=== PATIENT | female | born 2000 | race American Indian/Alaskan Native ===

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

== ENCOUNTER 2020-11-13 19:29 | Emergency (ER) | payer MEDICAID ==
[2020-11-13 19:58] VITALS: BP 113/58
--- NOTE | 2020-11-13 20:37 | Emergency Department Report ---
ED ENT HPI - General Chief complaint: Earache Stated complaint: LFT EAR BALL IN EAR Time Seen by Provider: 11/13/20 20:27 Source: patient Mode of arrival: Ambulatory Limitations: No Limitations - History of Present Illness Initial comments: This is a 20-year-old female who presents to the ED complaining of foreign body in the left ear x20 minutes ago. Patient states she was getting her tragus pierced when the person accidentally put earring ball into the ear. States she can feel the metal ball against the eardrum. She denies any fever/chills/diff iculty hearing/bleeding from the ear/discharge from the ears/ear pain or any other problems. MD complaint: foreign body (left ear) Location: L ear Severity: mild Associated Symptoms: denies: fever, cough, pain with swallowing, sore throat, discharge from ear, rhinorrhea - Related Data Previous Rx's Medication Instructions Recorded Last Taken Type Amoxicillin 500 mg PO BID #14 capsule 10/25/18 Unknown Rx Ferrous Sulfate 325 mg PO BID #30 tablet. 12/05/18 Unknown Rx Ibuprofen [Motrin] 600 mg PO Q8H PRN #30 tablet 12/05/18 Unknown Rx oxyCODONE /ACETAMINOPHEN [Percocet 1 tab PO Q6HR PRN #30 tablet 12/05/18 Unknown Rx 5/325] Allergies Allergy/AdvReac Type Severity Reaction Status Date / Time No Known Allergies Allergy Unverified 09/07/18 00:48 ED Dental HPI - General Chief complaint: Earache Stated complaint: LFT EAR BALL IN EAR Time Seen by Provider: 11/13/20 20:27 Source: patient Mode of arrival: Ambulatory Limitations: No Limitations - Related Data Previous Rx's Medication Instructions Recorded Last Taken Type Amoxicillin 500 mg PO BID #14 capsule 10/25/18 Unknown Rx Ferrous Sulfate 325 mg PO BID #30 tablet. 12/05/18 Unknown Rx Ibuprofen [Motrin] 600 mg PO Q8H PRN #30 tablet 12/05/18 Unknown Rx oxyCODONE /ACETAMINOPHEN [Percocet 1 tab PO Q6HR PRN #30 tablet 12/05/18 Unknown Rx 5/325] Allergies Allergy/AdvReac Type Severity Reaction Status Date / Time No Known Allergies Allergy Unverified 09/07/18 00:48 ED Review of Systems ROS: Stated complaint: LFT EAR BALL IN EAR Other details as noted in HPI Comment: All other systems reviewed and negative ED Past Medical Hx - Past Medical History Previous Medical History?: No Hx Hypertension: No Hx Congestive Heart Failure: No Hx Diabetes: No Hx Deep Vein Thrombosis: No Hx Renal Disease: No Hx Sickle Cell Disease: No Hx Seizures: No Hx Asthma: No Hx COPD: No Hx HIV: No - Social History Smoking Status: Never Smoker Substance Use Type: None - Medications Home Medications: Home Medications Medication Instructions Recorded Confirmed Last Taken Type Amoxicillin 500 mg PO BID #14 capsule 10/25/18 12/05/18 Unknown Rx Ferrous Sulfate 325 mg PO BID #30 tablet. 12/05/18 Unknown Rx Ibuprofen [Motrin] 600 mg PO Q8H PRN #30 tablet 12/05/18 Unknown Rx oxyCODONE /ACETAMINOPHEN [Percocet 1 tab PO Q6HR PRN #30 tablet 12/05/18 Unknown Rx 5/325] ED Physical Exam - General Limitations: No Limitations General appearance: alert, in no apparent distress - Head Head exam: Present: atraumatic, normocephalic - Eye Eye exam: Present: normal appearance - ENT ENT exam: Present: mucous membranes moist - Expanded ENT Exam Expanded TM/Canal exam: Foreign Body: Left TM (Small metal visualized at 7:00 on the tympanic membrane) Mouth exam: Present: normal external inspection Teeth exam: Present: normal inspection Throat exam: Positive: normal inspection - Neck Neck exam: Present: normal inspection, full ROM. Absent: tenderness - Respiratory Respiratory exam: Present: normal lung sounds bilaterally. Absent: respiratory distress - Cardiovascular Cardiovascular Exam: Present: regular rate, normal rhythm. Absent: systolic murmur, diastolic murmur, rubs, gallop - Skin Skin exam: Present: warm, dry. Absent: rash ED Course Vital Signs 11/13/20 19:56 Temperature 98.8 F Pulse Rate 76 Respiratory 16 Rate Blood Pressure 113/58 O2 Sat by Pulse 100 Oximetry ED Medical Decision Making - Medical Decision Making 20-year-old female who presents to ED with foreign body in left ear. Foreign object was visualized and flushed out with 60 cc of normal saline. Foreign object was a small metal tragus ring closure. Patient tolerated procedure foreign object was given to the patient. Patient was in no acute distress prior to discharge. Discussed with patient if she has any new symptoms she may return to the ED immediately. Critical care attestation.: If time is entered above; I have spent that time in minutes in the direct care of this critically ill patient, excluding procedure time. ED Disposition Clinical Impression: Ear foreign body Disposition: DC-01 TO HOME OR SELFCARE Is pt being admited?: No Does the pt Need Aspirin: No Condition: Stable Instructions: Ear Foreign Body, Ear Foreign Body, [id number] Additional Instructions: Follow-up with your primary care physician. Referrals: PRIMARY CAREMD [Primary Care Provider] - 3-5 Days [facility] [Provider Group] - 3-5 Days Forms: Work/School Release Form(ED) Time of Disposition: 22:00
== END 2020-11-13 21:40 | disposition home or self-care (01) ==
LOC: ED 19:29
DX: T16.2XXA Foreign body in left ear, initial encounter (principal); Z79.2 Long term (current) use of antibiotics; Z79.899 Other long term (current) drug therapy; X58.XXXA Exposure to other specified factors, initial encounter; Y93.89 Activity, other specified; Y92.89 Other specified places as the place of occurrence of the external cause; Y99.8 Other external cause status
CPT/HCPCS: 99282; 99283

== ENCOUNTER 2021-02-01 11:47 | Outpatient (CLI) | payer MEDICAID ==
--- NOTE | 2021-02-01 12:17 | Emergency Department Report ---
ED Abdominal Pain HPI - General Chief Complaint: Abdominal Pain Stated Complaint: PREG WKS ? ABD PAIN Time Seen by Provider: 02/01/21 12:16 Source: patient Mode of arrival: Ambulatory Limitations: No Limitations - History of Present Illness Initial Comments: This is a 20-year-old female who has not had a period since July 2020. Despite this her first test was within the last 24 hours. It was positive. This encouraged her to go to the emergency department for evaluation. She has had no other care. She complains of discomfort possibly in the right upper quadrant and right flank area. She states that her there has been some dysuria. She denies fever or chills. She denies respiratory symptoms. She has not been vomiting. She has had normal bowel movements. Patient does admit that she has had abdominal and flank discomfort for as long as 2 weeks. Patient is presumably 3 para 2. Her last was a spontaneous vaginal delivery in 2018. It was uncomplicated. MD Complaint: abdominal pain, flank pain -: Gradual, week(s) Location: RUQ, R flank Radiation: none Migration to: no migration Severity: mild Quality: aching Consistency: intermittent Improves With: nothing Worsens With: nothing Associated Symptoms: denies other symptoms - Related Data Previous Rx's Medication Instructions Recorded Last Taken Type Amoxicillin 500 mg PO BID #14 capsule 10/25/18 Unknown Rx Ferrous Sulfate 325 mg PO BID #30 tablet. 12/05/18 Unknown Rx Ibuprofen [Motrin] 600 mg PO Q8H PRN #30 tablet 12/05/18 Unknown Rx oxyCODONE /ACETAMINOPHEN [Percocet 1 tab PO Q6HR PRN #30 tablet 12/05/18 Unknown Rx 5/325] Allergies Allergy/AdvReac Type Severity Reaction Status Date / Time No Known Allergies Allergy Unverified 09/07/18 00:48 ED Review of Systems ROS: Stated complaint: PREG WKS ? ABD PAIN Other details as noted in HPI Constitutional: denies: chills, fever Eyes: denies: eye pain, eye discharge, vision change ENT: denies: ear pain, throat pain Respiratory: denies: cough, shortness of breath, wheezing Cardiovascular: denies: chest pain, palpitations Endocrine: no symptoms reported Gastrointestinal: as per HPI, abdominal pain. denies: nausea, diarrhea Genitourinary: denies: urgency, dysuria, discharge Musculoskeletal: as per HPI, back pain. denies: joint swelling, arthralgia Skin: denies: rash, lesions Neurological: denies: headache, weakness, paresthesias Psychiatric: denies: anxiety, depression Hematological/Lymphatic: denies: easy bleeding, easy bruising ED Past Medical Hx - Past Medical History Hx Hypertension: No Hx Congestive Heart Failure: No Hx Diabetes: No Hx Deep Vein Thrombosis: No Hx Renal Disease: No Hx Sickle Cell Disease: No Hx Seizures: No Hx Asthma: No Hx COPD: No Hx HIV: No - Surgical History Past Surgical History?: No - Social History Smoking Status: Never Smoker Substance Use Type: None - Medications Home Medications: Home Medications Medication Instructions Recorded Confirmed Last Taken Type Amoxicillin 500 mg PO BID #14 capsule 10/25/18 12/05/18 Unknown Rx Ferrous Sulfate 325 mg PO BID #30 tablet. 12/05/18 Unknown Rx Ibuprofen [Motrin] 600 mg PO Q8H PRN #30 tablet 12/05/18 Unknown Rx oxyCODONE /ACETAMINOPHEN [Percocet 1 tab PO Q6HR PRN #30 tablet 12/05/18 Unknown Rx 5/325] ED Physical Exam - General Limitations: No Limitations General appearance: alert, in no apparent distress - Head Head exam: Present: atraumatic, normocephalic - Eye Eye exam: Present: normal appearance. Absent: scleral icterus - ENT ENT exam: Present: mucous membranes moist - Neck Neck exam: Present: normal inspection - Respiratory Respiratory exam: Present: normal lung sounds bilaterally. Absent: respiratory distress - Cardiovascular Cardiovascular Exam: Present: regular rate, normal rhythm. Absent: systolic murmur, diastolic murmur, rubs, gallop - GI/Abdominal GI/Abdominal exam: Present: soft, normal bowel sounds, other (Somewhat obese and difficult to find fundus). Absent: tenderness, guarding, rebound, rigid - Extremities Exam Extremities exam: Present: normal inspection - Back Exam Back exam: Present: normal inspection. Absent: CVA tenderness (R), CVA tenderness (L) - Neurological Exam Neurological exam: Present: alert, oriented X3, CN II-XII intact. Absent: motor sensory deficit - Psychiatric Psychiatric exam: Present: normal affect, normal mood - Skin Skin exam: Present: warm, dry, intact, normal color. Absent: rash ED Course Vital Signs 02/01/21 02/01/2102/01/21 11:54 14:10 14:11 Temperature 97.5 F L Pulse Rate 75 76 Respiratory 16 18 18 Rate Blood Pressure 108/55 Blood Pressure 117/64 [Left] O2 Sat by Pulse 99 100 100 Oximetry - Reevaluation(s) Reevaluation #1: Urine is yet pending. Apparently disposed of that ultrasound. Discussed with L D triage. Patient will require evaluation as she is over 24 weeks at L&D. She is stable for emergency department discharge. She will go to L&D now. 02/01/21 14:24 ED Medical Decision Making - Lab Data Result diagrams: 02/01/21 12:34 02/01/21 12:34 Laboratory Results - last 24 hr 02/01/21 02/01/21 02/01/21 12:34 12:34 12:34 WBC 6.8 RBC 3.64 L Hgb 11.6 Hct 33.9 MCV 93 MCH 32 MCHC 34 RDW 12.5 L Plt Count 265 Lymph % (Auto) 19.8 [place] % (Auto) 6.8 Eos % (Auto) 0.6 Baso % (Auto) 0.3 Lymph # (Auto) 1.4 [place] # (Auto) 0.5 Eos # (Auto) 0.0 Baso # (Auto) 0.0 Seg Neutrophils % 72.5 H Seg Neutrophils # 4.9 Sodium 133 L Potassium 3.6 Chloride 103.3 Carbon Dioxide 22 Anion Gap 11 BUN 7 Creatinine 0.5 L Estimated GFR > 60 BUN/Creatinine Ratio 14 Glucose 73 Calcium 8.6 Total Bilirubin 0.20 Direct Bilirubin < 0.2 Indirect Bilirubin 0.0 AST 14 ALT 8 Alkaline Phosphatase 56 Total Protein 6.3 Albumin 3.3 L Albumin/Globulin Ratio 1.1 Lipase 16 HCG, Quant 8415 H Critical care attestation.: If time is entered above; I have spent that time in minutes in the direct care of this critically ill patient, excluding procedure time. ED Disposition Clinical Impression: Right flank pain, 24 weeks gestation of , Hyponatremia Abdominal pain Qualifiers: Abdominal location: right upper quadrant Qualified Code(s): R10.11 - Right upper quadrant pain Disposition: OP ADMIT IP TO THIS HOSP Is pt being admited?: No Does the pt Need Aspirin: No Condition: Stable Instructions: Abdominal Pain (ED), Care Additional Instructions: To L&D for further evaluation now.
[2021-02-01] MEDS ORDERED: SODIUM CHLORIDE 0.9% 1000 ML 1,000 ML IV ONE (12:28)
[2021-02-01 12:50] LABS: Basophils % (Auto) 0.3 % (0.0-1.8); Eosinophils % (Auto) 0.6 % (0.0-4.3); Hematocrit 33.9 % (30.3-42.9); Hemoglobin 11.6 gm/dl (10.1-14.3); Lymphocytes # (Auto) 1.4 K/mm3 (1.2-5.4); Lymphocytes % (Auto) 19.8 % (13.4-35.0); Mean Corpuscular HGB Conc 34 % (30-34); Mean Corpuscular Volume 93 fl (79-97); Monocytes # (Auto) 0.5 K/mm3 (0.0-0.8); Monocytes % (Auto) 6.8 % (0.0-7.3); Platelet Count 265 K/mm3 (140-440); Red Blood Count 3.64 M/mm3 (3.65-5.03); Red Cell Distribution Width 12.5 % (13.2-15.2)
[2021-02-01 13:13] LABS: Alanine Aminotransferase 8 units/L (7-56); Albumin 3.3 g/dL (3.9-5); BUN/Creatinine Ratio 14; Bilirubin,Direct < 0.2 mg/dL (0-0.2); Blood Urea Nitrogen 7 mg/dL (7-17); Calcium 8.6 mg/dL (8.4-10.2); Hemolysis Index 3
[2021-02-01 14:12] VITALS: BP 117/64
--- NOTE | 2021-02-01 14:25 | Ultrasound Report ---
OB Ultrasound HISTORY: ABD and R flank pain, LMP July, + home preg. TECHNIQUE: Grayscale and color imaging performed. COMPARISON: No recent comparison exam FINDINGS: There is a single viable intrauterine gestation with cephalic presentation and CHENTE of 13 cm . Placenta is positioned anteriorly with no evidence of placenta previa. Heart rate is 156 bpm. Cervi rinku length is 3.5 cm. Overall EGA is 24 weeks and 0 days by ultrasound with delivery date of 05/24/2021. Estimate of w eight is 642 g with head to abdominal circumference ratio of 1.2 and cephalic index 80.5. Limited anatomic survey was unremarkable. IMPRESSION: Single viable intrauterine gestation as above. Signer Name: Nagi Kate MD Signed: 02/01/2021 2:21 PM Workstation Name: [id number]
[2021-02-01 14:46] LABS: Amphetamine Screen,Urine Negative; Benzodiazepines Screen,Urine Negative; Cannabinoid Screen,Urine Negative; Cocaine Screen,Urine Negative; Methadone Screen,Urine Negative; Opiate Screen,Urine Negative
[2021-02-01 15:35] LABS: Bilirubin,Urine NEG (Negative); Blood,Urine NEG (Negative); Color,Urine Yellow (Yellow); Mucus,Urine 2+ /HPF; Urobilinogen,Urine < 2.0 mg/dL (<2.0)
[2021-02-01 15:39] LABS: WBC,Urine > 182.0 /HPF (0.0-6.0)
[2021-02-01 15:50] LABS: HCG Qualitative,Urine Positive (Negative)
--- NOTE | 2021-02-01 16:31 | Ultrasound Report ---
US renal BILAT INDICATION / CLINICAL INFORMATION: ABD and R flank pain, LMP July, + home preg. COMPARISON: None available. FINDINGS: RIGHT KIDNEY: Size = 11.3 cm. - Echogenicity: Normal. - Cortical thickness: Normal. - Hydronephrosis: There is dilation of the renal pelvis with extension into the calyces. - Cyst or mass: None. - Stones: None seen.. LEFT KIDNEY: Size = 10.6 cm. - Echogenicity: Normal. - Cortical thickness: Normal. - Hydronephrosis: None. - Cyst or mass: None. - Stones: None seen.. URINARY BLADDER: No significant abnormality. FREE FLUID: None. ADDITIONAL FINDINGS: The baby is incompletely visualized.. IMPRESSION 1. Severe right hydronephrosis in this patient. Signer Name: Marcos Cormier MD Signed: 02/01/2021 4:27 PM Workstation Name: [id number]
== END 2021-02-01 16:33 | disposition left against medical advice (07) ==
LOC: TRG 11:47 → ED 11:47 → TRG 14:42 → ED 14:42 → EDSTATUS 16:03 → APU 16:08 → TRG 16:33
PROVIDERS: ATTEND Obstetrics & Gynecology
DX: O26.832 Pregnancy related renal disease, second trimester (principal); N13.39 Other hydronephrosis; Z3A.24 24 weeks gestation of pregnancy
CPT/HCPCS: 36415; 76770; 76805; 80048; 80076; 80307; 81001; 81025; 83690; 84702; 85025; 87086; J7030; 99284

== ENCOUNTER 2021-05-03 12:45 | Inpatient (IN) | payer MEDICAID ==
[2021-05-03] MEDS ORDERED: ACETAMINOPHEN 325 MG TAB PO PRN (12:54)
[2021-05-03] MEDS ORDERED: ePHEDrine SULFATE 50 MG/1 ML INJ IV PRN (12:54)
[2021-05-03] MEDS ORDERED: fentaNYL 100 MCG/2 ML INJ IV PRN (12:54)
[2021-05-03] MEDS ORDERED: TERBUTALINE 1 MG/1 ML INJ SUB-Q PRN (12:54)
[2021-05-03] MEDS ORDERED: MINERAL OIL 30 ML ORAL LIQD PO PRN (12:54)
[2021-05-03] MEDS ORDERED: METHYLERGONOVINE MALEATE 0.2 MG/ML VIAL IM PRN (12:54)
[2021-05-03] MEDS ORDERED: miSOPROStol 200 MCG TAB PR PRN (12:54)
[2021-05-03] MEDS ORDERED: LOPERAMIDE 2 MG CAP PO PRN (12:54)
[2021-05-03] MEDS ORDERED: OXYTOCIN 10 UNIT/1 ML INJ IM PRN (12:54)
[2021-05-03] MEDS ORDERED: ONDANSETRON 4 MG/2 ML INJ IV PRN (12:54)
[2021-05-03] MEDS ORDERED: LACTATED RINGERS 1,000 ML IV SCH (13:00)
[2021-05-03] MEDS ORDERED: OXYTOCIN DRIP 30 UNITS/500 ML BAG IV SCH ×2 (13:00)
--- NOTE | 2021-05-03 13:07 | History and Physical Report ---
History of Present Illness Date of examination: 05/03/21 (IOL@37w [facility] Date of admission: 05/03/21 12:45 Chief complaint: here for induction History of present illness: EDC Confirmation: 05/24/2021 Gestational Age: 37w 0/7 days Past History : 3 Term Births: 2 Premature Births: 0 Living Children: 2 Para: 2 Mult. Births: 0 Prev : 0 Aborta: 0 Elect. Ab: 0 Spont. Ab: 0 Ectopics: 0 # 1 Delivery date: 04/16/2016 Weeks Gestation: 40 labor: no Delivery type: Hours of labor: 7 Anesthesia type: epidural Delivery location: [place], [place] Infant Sex: Male weight: 5lbs 12oz Comments: denies complications # 2 Delivery date: 12/05/2018 Weeks Gestation: 40 labor: no Delivery type: Hours of labor: 2 Anesthesia type: none Delivery location: [facility] Infant Sex: Male weight: 6lbs Comments: denies complications Past Medical History: UTI's Recurrent Abnormal Pap Smear 2018 Past Surgical History: negative Family History Summary: KATIA - Has Family History of Diabetes - Entered On: 04/04/2021 Social History: Patient is single Smoking History: Patient has never smoked. Past Medical History Anesthesia Complications: negative Anemia: negative Autoimmune Disorder: negative Bleeding Disorder: negative Blood Transfusions: negative Breast Disease: negative Diabetes: negative Heart Disease: negative Hypertension: negative Hepatitis/Liver Disease: negative Kidney Disease/UTI: positive, February 2021 Neurologic/Epilepsy/Migraines: negative Phlebitis/Varicosities: negative Psychiatric: negative Pulmonary Disease/Asthma: negative Thyroid Disease: negative Hospitalizations: positive, recently hosp. @[facility] for pyelonephritis Surgery (Non-shipper and receiving): negative Abnormal PAP: positive, in 2019, no FU RAF Exposure: negative Infertility: negative Uterine Anomaly: negative Uterine Surgery (not C/S): negative Other Gynecologic Problems: negative Social Hx: Patient is single Smoking History: Patient has never smoked. Infection History Hx of STD: chlamydia HIV Risk Eval: no Hepatitis B Risk Eval: low risk Personal hx. of genital herpes: no Partner hx. of genital herpes: no Rash, Viral, or Febrile illness since last LMP? no Varicella/Chicken Pox Status: Unknown TB Risk: no Genetic History Congenital Heart Defect: Mom: no Dad: no Mary Disease: Mom: no Dad: no Thalassemia Mom: no Dad: no Neural Tube Defect Mom: no Dad: no Down's Syndrome Mom: no Dad: no Darius-Sachs Mom: no Dad: no Sickle Cell Disease/Trait Mom: no Dad: no Hemophilia Mom: no Dad: no Muscular Dystrophy Mom: no Dad: no Cystic Fibrosis Mom: no Dad: no Toombs Chorea Mom: no Dad: no Mental Retardation Mom: no Dad: no Fragile X Mom: no Dad: no Other Genetic/Chromosomal Disorder Mom: no Dad: no Child w/other defect Mom: no Dad: no Enviromental Exposures Enviromental Exposures Reviewed Xray Exposure: no Medication, drug, or alcohol use since LMP: no Chemical/Other Exposure: no Exposure to Cat Liter: no Hx of Parvovirus (Fifth Disease): no Occupational Exposure to Children: none Current Allergies (reviewed today): No known allergies Past History Past Medical History: no pertinent history Social history: single - Obstetrical History Expected Date of Delivery: 05/24/21 Actual Gestation: 37 Week(s) 0 Day(s) : 3 Para: 2 Hx # Term Pregnancies: 2 Number of Pregnancies: 0 Spontaneous Abortions: 0 Induced : 0 Number of Living Children: 2 Medications and Allergies Allergies Allergy/AdvReac Type Severity Reaction Status Date / Time No Known Allergies Allergy Verified 05/03/21 13:47 Home Medications Medication Instructions Recorded Confirmed Last Taken Type Amoxicillin 500 mg PO BID #14 capsule 10/25/18 02/04/21 Unknown Rx Ferrous Sulfate 325 mg PO BID #30 tablet. 12/05/18 02/04/21 Unknown Rx Ibuprofen [Motrin] 600 mg PO Q8H PRN #30 tablet 12/05/18 02/04/21 Unknown Rx oxyCODONE /ACETAMINOPHEN [Percocet 1 tab PO Q6HR PRN #30 tablet 12/05/18 02/04/21 Unknown Rx 5/325] Acetaminophen/Codeine [Tylenol 1 tab PO Q6H PRN #20 tab 02/06/21 Unknown Rx /Codeine # 3 tab] Nitrofurantoin Caroline/M-Cryst 100 mg PO Q12HR #28 capsule 02/06/21 Unknown Rx [Macrobid CAP] Review of Systems All systems: negative - Physical Exam Breasts: Positive: deferred Cardiovascular: Regular rate, Normal S1, Normal S2 Lungs: Positive: Clear to auscultation Abdomen: Positive: normal appearance, soft, normal bowel sounds. Negative: distention, tenderness Genitourinary (Female): Positive: normal external genitalia Vulva: both: normal Vagina: Positive: normal moisture. Negative: discharge Cervix: Negative: lesion, discharge Uterus: Positive: normal size, normal contour Adnexa: both: normal Anus/Rectum: Positive: normal perianal skin, heme negative. Negative: rectal mass, hemorrhoids Extremities: Positive: normal Deep Tendon Reflex Grade: Normal +2 - Obstetrical FHR: category 1 Uterine Contraction Monitor Mode: External Cervical Dilatation: 1.5 (CNM exam in office 05/02/21) Cervical Effacement Percentage: 70 station: -2 Uterine Contraction Pattern: Irregular Uterine Tone Measurement Phase: Resting Uterine Contraction Intensity: Mild Results Result Diagrams: 05/03/21 14:10 All other labs normal. GBS Positive HBsAg Screen Negative Negative *1 RPR Non Reactive Non Reactive *2 Rubella Antibodies, IgG [L] <0.90 index Immune >0.99 *3 Non-immune <0.90 Equivocal 0.90 - 0.99 Immune >0.99 ABO Grouping O Rh Factor Negative Rhogam given 04-20-21 Please note: Prior records for this patient's ABO / Rh type are not available for additional verification. Antibody Screen Negative Negative *6 WBC 6.8 x10E3/uL 3.4-10.8 *7 RBC [L] 3.55 x10E6/uL 3.77-5.28 *8 Hemoglobin 11.3 g/dL 11.1-15.9 *9 Hematocrit [L] 33.0 % 34.0-46.6 *10 MCV 93 fL 79-97 *11 MCH 31.8 pg 26.6-33.0 *12 MCHC 34.2 g/dL 31.5-35.7 *13 RDW 12.4 % 11.7-15.4 *14 Platelets 208 x10E3/uL 150-450 *15 Neutrophils 69 % Not Estab. *16 Lymphs 25 % Not Estab. *17 Monocytes 4 % Not Estab. *18 Eos 2 % Not Estab. *19 Basos 0 % Not Estab. *20 ! Immature Cells <No Reported Value> *21 Neutrophils (Absolute) 4.6 x10E3/uL 1.4-7.0 *22 Lymphs (Absolute) 1.7 x10E3/uL 0.7-3.1 *23 Monocytes(Absolute) 0.3 x10E3/uL 0.1-0.9 *24 Eos (Absolute) 0.1 x10E3/uL 0.0-0.4 *25 Baso (Absolute) 0.0 x10E3/uL 0.0-0.2 *26 ! Immature Granulocytes 0 % Not Estab. *27 ! Immature Grans (Abs) 0.0 x10E3/uL 0.0-0.1 *28 ! NRBC <No Reported Value> *29 Hematology Comments: <No Reported Value> *30 Tests: (2) HB Solu + Rflx Frac (166011) Hemoglobin (Hgb) Solubility Negative Negative *31 Tests: (3) HIV Ag/Ab with Reflex ([id number]) HIV Screen 4th Generation wRfx Non Reactive Non Reactive *32 Tests: (4) Varicella-Zoster V Ab, IgG ([id number]) ! Varicella Zoster IgG [L] <135 index Immune >165 *33 Negative <135 NONIMMUNE Equivocal 135 - 165 Positive >165 A positive result generally indicates exposure to the pathogen or administration of specific immunoglobulins, but it is not indication of active infection or stage of disease. Tests: (5) Varicella-Zoster Ab, IgM ([id number]) ! Varicella-Zoster Ab, IgM <0.91 index 0.00-0.90 *34 Negative <0.91 Borderline 0.91 - 1.09 Positive >1.09 Tests: (6) Gest. Diabetes 1-Hr Screen ([id number]) ! Gestational Diabetes Screen 139 mg/dL 65-139 *35 According to ADA, a glucose threshold of >139 mg/dL after 50-gram load identifies approximately 80% of women with gestational diabetes mellitus, while the sensitivity is further increased to approximately 90% by a threshold of >129 mg/dL. Tests: (7) HCV Ab w/Rflx to Verification ([id number]) ! HCV Ab <0.1 s/co ratio 0.0-0.9 *36 Tests: (8) Comment: ([id number]) ! Comment: SPRCS *37 Non reactive HCV antibody screen is consistent with no HCV infection, unless recent infection is suspected or other evidence exists to indicate HCV infection. Effective May 03, 2021, this panel will be made non-orderable as it no longer meets clinical guidelines for the detection of HCV infection. [facility] offers HCV Antibody with reflex to Quantitative real-time PCR (704535) and HCV Antibody with reflex to Qualitative CHELY (197775) which align with current guidelines. Tests: (9) Urine Culture, Routine ([id number]) Urine Culture, Routine [A] Final report *38 Tests: (10) Result ([id number]) ! Result 1 [A] ECV *39 Escherichia coli, identified by an automated biochemical system. 50,000-100,000 colony forming units per mL ! Result 2 [A] BETAGB *40 Beta hemolytic Streptococcus, group B Treated with po ABX @ the time of labs. Will need tx per protocol in labor Assessment and Plan 21yo @ 37w0d for IOL due to IUGR [facility] recommends delivery. Pt is GBS+; Rh negative; NONIMMUNE Varicella and Rubella. All orders in EMR. Dr Elliott aware of pt admission - Patient Problems (1) Rubella non-immune status, antepartum Onset Date: ~05/03/21 Current Visit: Yes Status: Acute Plan to address problem: will offer MMR PP (2) Maternal varicella, non-immune Onset Date: ~05/03/21 Current Visit: Yes Status: Acute Plan to address problem: Will offer vaccination PP (3) Rh negative status during Onset Date: ~05/03/21 Current Visit: Yes Status: Acute Plan to address problem: Rhogam received 04-20-21 pt was late for PNC Will assess after delivery (4) Group B Streptococcus carrier state affecting Onset Date: ~05/03/21 Current Visit: Yes Status: Acute Plan to address problem: ampicillin per protocol (5) IUGR (intrauterine growth restriction) Onset Date: ~05/03/21 Current Visit: Yes Status: Acute Plan to address problem: Continuous monitoring throughout the labor process (6) Insufficient care in third trimester Onset Date: ~05/03/21 Current Visit: Yes Status: Acute Plan to address problem: Pt entered into care 04-04-21 @ 32w6d
[2021-05-03] MEDS ORDERED: AMPICILLIN/NS 2 GM/100 ML 2 GM/100 ML BAG IV ONE (13:15)
[2021-05-03] MEDS ORDERED: CARBOPROST TROMETHAMINE 250 MCG/1 ML INJ IM PRN (13:54)
[2021-05-03] MEDS ORDERED: LIDOCAINE (2%) 20 MG/1 ML VIAL 20 ML MDV INFILTRATI ONE (13:54)
[2021-05-03 15:13] LABS: Hematocrit 31.8 % (30.3-42.9); Hemoglobin 11.1 gm/dl (10.1-14.3); Mean Corpuscular HGB Conc 35 % (30-34); Mean Corpuscular Volume 93 fl (79-97); Platelet Count 224 K/mm3 (140-440); Red Blood Count 3.42 M/mm3 (3.65-5.03); Red Cell Distribution Width 13.2 % (13.2-15.2)
[2021-05-03] MEDS ORDERED: fentaNYL-BUPIV 2 MCG/ML-0.125% 200 MCG/100 ML BAG EPIDURAL ONE (15:59)
--- NOTE | 2021-05-03 16:54 | Event Note ---
Date: 05/03/21 (No cervical chg) Pitocin off 1700 PM care and dinner plan for cervidil @ 1900. POC reviewed with pt All questions addressed
[2021-05-03] MEDS ORDERED: diphenhydrAMINE 50 MG/ML VIAL IV ONE (18:00)
[2021-05-03] MEDS: AMPICILLIN/NS 1 GM/50 ML 1 GM/50 ML BAG IV SCH (18:25)
[2021-05-03] MEDS ORDERED: DINOPROSTONE 10 MG VAG SUPP VG NR (19:00)
--- NOTE | 2021-05-03 23:04 | Progress Note ---
Assessment and Plan CNM to BS d/t tachysystole. Pt reports painful contractions and desire to void; up to bathroom without difficulty. Return to bed with continued tachysystole noted. SVE 4/70/-2 and cervidil removed @2240. Pt reports desire for epidural. RN updated. Pt may have epidural. Will start pitocin augmentation per protocol in one hour if necessary. Continue GBS treatment as ordered and continuous monitoring. Anticipate . - Patient Problems (1) 37 weeks gestation of Current Visit: Yes Status: Acute (2) Group B Streptococcus carrier state affecting Onset Date: ~05/03/21 Current Visit: Yes Status: Acute (3) IUGR (intrauterine growth restriction) Onset Date: ~05/03/21 Current Visit: Yes Status: Acute (4) Insufficient care in third trimester Onset Date: ~05/03/21 Current Visit: Yes Status: Acute (5) Maternal varicella, non-immune Onset Date: ~05/03/21 Current Visit: Yes Status: Acute (6) Rh negative status during Onset Date: ~05/03/21 Current Visit: Yes Status: Acute (7) Rubella non-immune status, antepartum Onset Date: ~05/03/21 Current Visit: Yes Status: Acute Subjective - Subjective Date of service: 05/03/21 Principal diagnosis: IUP at term, IOL for IUGR, GBS positive Patient reports: movement normal, contractions, no loss of fluid, no vaginal bleeding Objective - Vital Signs Vital Signs: Vital Signs - 12hr 05/03/21 05/03/21 05/03/21 13:10 13:12 13:17 Temperature Pulse Rate 67 79 83 Respiratory Rate Blood Pressure 105/59 Blood Pressure [Left] O2 Sat by Pulse 97 98 Oximetry 05/03/21 05/03/21 05/03/21 13:22 13:27 13:32 Temperature Pulse Rate 76 87 75 Respiratory Rate Blood Pressure Blood Pressure [Left] O2 Sat by Pulse 98 97 97 Oximetry 05/03/21 05/03/21 05/03/21 13:37 13:42 13:47 Temperature Pulse Rate 95 H 75 76 Respiratory Rate Blood Pressure Blood Pressure [Left] O2 Sat by Pulse 98 97 97 Oximetry 05/03/21 05/03/21 05/03/21 13:48 13:52 13:57 Temperature 98.9 F Pulse Rate 80 70 79 Respiratory 20 Rate Blood Pressure Blood Pressure 105/59 [Left] O2 Sat by Pulse 97 98 97 Oximetry 05/03/21 05/03/21 05/03/21 14:02 14:07 14:09 Temperature Pulse Rate 75 78 75 Respiratory Rate Blood Pressure 112/61 Blood Pressure [Left] O2 Sat by Pulse 96 97 Oximetry 05/03/21 05/03/21 05/03/21 14:12 14:17 14:22 Temperature Pulse Rate 73 71 78 Respiratory Rate Blood Pressure Blood Pressure [Left] O2 Sat by Pulse 96 95 96 Oximetry 05/03/21 05/03/21 05/03/21 14:27 14:32 14:37 Temperature Pulse Rate 69 74 78 Respiratory Rate Blood Pressure Blood Pressure [Left] O2 Sat by Pulse 96 96 96 Oximetry 05/03/21 05/03/21 05/03/21 14:42 14:47 14:52 Temperature Pulse Rate 65 72 66 Respiratory Rate Blood Pressure 103/59 Blood Pressure [Left] O2 Sat by Pulse 96 95 98 Oximetry 05/03/21 05/03/21 05/03/21 14:57 15:02 15:07 Temperature Pulse Rate 67 67 75 Respiratory Rate Blood Pressure Blood Pressure [Left] O2 Sat by Pulse 99 99 97 Oximetry 05/03/21 05/03/21 05/03/21 15:09 15:12 15:17 Temperature Pulse Rate 76 78 77 Respiratory Rate Blood Pressure 99/63 Blood Pressure [Left] O2 Sat by Pulse 98 97 Oximetry 05/03/21 05/03/21 05/03/21 15:22 15:27 15:32 Temperature Pulse Rate 74 77 72 Respiratory Rate Blood Pressure Blood Pressure [Left] O2 Sat by Pulse 97 97 97 Oximetry 05/03/21 05/03/21 05/03/21 15:37 15:40 15:42 Temperature Pulse Rate 72 76 75 Respiratory Rate Blood Pressure 98/62 Blood Pressure [Left] O2 Sat by Pulse 98 97 Oximetry 05/03/21 05/03/21 05/03/21 15:47 15:52 15:57 Temperature Pulse Rate 70 72 72 Respiratory Rate Blood Pressure Blood Pressure [Left] O2 Sat by Pulse 98 96 98 Oximetry 05/03/21 05/03/21 05/03/21 16:02 16:07 16:10 Temperature Pulse Rate 68 77 68 Respiratory Rate Blood Pressure 102/55 Blood Pressure [Left] O2 Sat by Pulse 98 97 Oximetry 05/03/21 05/03/21 05/03/21 16:12 16:17 16:20 Temperature Pulse Rate 72 71 73 Respiratory Rate Blood Pressure Blood Pressure [Left] O2 Sat by Pulse 96 97 94 Oximetry 05/03/21 05/03/21 05/03/21 16:22 16:27 16:32 Temperature Pulse Rate 79 73 66 Respiratory Rate Blood Pressure Blood Pressure [Left] O2 Sat by Pulse 96 96 96 Oximetry 05/03/21 05/03/21 05/03/21 16:37 16:39 16:42 Temperature Pulse Rate 74 66 66 Respiratory Rate Blood Pressure 107/60 Blood Pressure [Left] O2 Sat by Pulse 95 98 Oximetry 05/03/21 05/03/21 05/03/21 16:47 16:51 16:53 Temperature Pulse Rate 63 110 H 64 Respiratory Rate Blood Pressure Blood Pressure [Left] O2 Sat by Pulse 99 87 76 L Oximetry 05/03/21 05/03/21 05/03/21 16:58 17:03 17:08 Temperature Pulse Rate 68 66 63 Respiratory Rate Blood Pressure Blood Pressure [Left] O2 Sat by Pulse 100 100 99 Oximetry 05/03/21 05/03/21 05/03/21 17:09 17:13 17:18 Temperature Pulse Rate 64 76 72 Respiratory Rate Blood Pressure 108/59 Blood Pressure [Left] O2 Sat by Pulse 98 98 Oximetry 05/03/21 05/03/21 05/03/21 17:23 17:28 17:33 Temperature Pulse Rate 93 H 81 86 Respiratory Rate Blood Pressure Blood Pressure [Left] O2 Sat by Pulse 99 100 99 Oximetry 05/03/21 05/03/21 05/03/21 17:38 17:40 17:43 Temperature Pulse Rate 75 73 72 Respiratory Rate Blood Pressure 99/59 Blood Pressure [Left] O2 Sat by Pulse 99 98 Oximetry 05/03/21 05/03/21 05/03/21 17:48 17:53 17:58 Temperature Pulse Rate 85 97 H 80 Respiratory Rate Blood Pressure Blood Pressure [Left] O2 Sat by Pulse 98 98 99 Oximetry 05/03/21 05/03/21 05/03/21 18:03 18:08 18:13 Temperature Pulse Rate 79 86 68 Respiratory Rate Blood Pressure Blood Pressure [Left] O2 Sat by Pulse 98 98 98 Oximetry 05/03/21 05/03/21 05/03/21 18:18 18:23 18:26 Temperature Pulse Rate 77 74 69 Respiratory Rate Blood Pressure 112/67 Blood Pressure [Left] O2 Sat by Pulse 98 97 Oximetry 05/03/21 05/03/21 05/03/21 18:28 18:33 18:38 Temperature Pulse Rate 86 78 77 Respiratory Rate Blood Pressure Blood Pressure [Left] O2 Sat by Pulse 98 96 98 Oximetry 05/03/21 05/03/21 05/03/21 18:39 18:43 18:48 Temperature Pulse Rate 72 74 84 Respiratory Rate Blood Pressure 92/46 Blood Pressure [Left] O2 Sat by Pulse 97 98 Oximetry 05/03/21 05/03/21 05/03/21 18:53 18:58 19:01 Temperature Pulse Rate 78 75 82 Respiratory Rate Blood Pressure 111/54 Blood Pressure [Left] O2 Sat by Pulse 98 99 Oximetry 05/03/21 05/03/21 05/03/21 19:02 19:03 19:08 Temperature Pulse Rate 74 75 77 Respiratory Rate Blood Pressure Blood Pressure [Left] O2 Sat by Pulse 93 99 99 Oximetry 05/03/21 05/03/21 05/03/21 19:09 19:13 19:18 Temperature 98.3 F Pulse Rate 82 72 71 Respiratory 18 Rate Blood Pressure 108/67 Blood Pressure 111/54 [Left] O2 Sat by Pulse 100 98 Oximetry 05/03/21 05/03/21 05/03/21 19:23 19:28 19:33 Temperature Pulse Rate 74 73 82 Respiratory Rate Blood Pressure Blood Pressure [Left] O2 Sat by Pulse 98 98 91 Oximetry 05/03/21 05/03/21 05/03/21 19:38 19:58 20:03 Temperature Pulse Rate 70 90 71 Respiratory Rate Blood Pressure Blood Pressure [Left] O2 Sat by Pulse 99 100 100 Oximetry 05/03/21 05/03/21 05/03/21 20:08 20:13 20:15 Temperature Pulse Rate 72 72 Respiratory Rate Blood Pressure 103/54 Blood Pressure [Left] O2 Sat by Pulse 100 100 94 Oximetry 05/03/21 05/03/21 05/03/21 20:18 20:21 20:23 Temperature Pulse Rate 70 71 75 Respiratory Rate Blood Pressure Blood Pressure [Left] O2 Sat by Pulse 96 94 96 Oximetry 05/03/21 05/03/21 05/03/21 20:28 20:33 20:38 Temperature Pulse Rate 68 71 73 Respiratory Rate Blood Pressure Blood Pressure [Left] O2 Sat by Pulse 100 100 100 Oximetry 05/03/21 05/03/21 05/03/21 20:39 20:43 20:48 Temperature Pulse Rate 75 68 71 Respiratory Rate Blood Pressure 106/70 Blood Pressure [Left] O2 Sat by Pulse 100 100 Oximetry 05/03/21 05/03/21 05/03/21 20:53 20:58 21:03 Temperature Pulse Rate 67 72 68 Respiratory Rate Blood Pressure Blood Pressure [Left] O2 Sat by Pulse 100 99 99 Oximetry 05/03/21 05/03/21 05/03/21 21:08 21:09 21:13 Temperature Pulse Rate 69 67 74 Respiratory Rate Blood Pressure 111/65 Blood Pressure [Left] O2 Sat by Pulse 100 99 Oximetry 05/03/21 05/03/21 05/03/21 21:18 21:23 21:28 Temperature Pulse Rate 69 76 71 Respiratory Rate Blood Pressure Blood Pressure [Left] O2 Sat by Pulse 98 98 99 Oximetry 05/03/21 05/03/21 05/03/21 21:33 21:38 21:41 Temperature Pulse Rate 73 69 69 Respiratory Rate Blood Pressure 117/60 Blood Pressure [Left] O2 Sat by Pulse 99 100 Oximetry 05/03/21 05/03/21 05/03/21 21:43 21:48 21:53 Temperature Pulse Rate 63 71 73 Respiratory Rate Blood Pressure Blood Pressure [Left] O2 Sat by Pulse 100 100 99 Oximetry 05/03/21 05/03/21 05/03/21 21:58 22:03 22:08 Temperature Pulse Rate 75 65 73 Respiratory Rate Blood Pressure Blood Pressure [Left] O2 Sat by Pulse 99 100 100 Oximetry 05/03/21 05/03/21 05/03/21 22:10 22:13 22:18 Temperature Pulse Rate 76 72 80 Respiratory Rate Blood Pressure 111/59 Blood Pressure [Left] O2 Sat by Pulse 100 100 Oximetry 05/03/21 05/03/21 05/03/21 22:20 22:23 22:28 Temperature Pulse Rate 42 L 73 83 Respiratory Rate Blood Pressure Blood Pressure [Left] O2 Sat by Pulse 76 L 100 100 Oximetry 07/11/2305/03/21 05/03/21 22:29 22:37 22:40 Temperature Pulse Rate 95 H 74 79 Respiratory Rate Blood Pressure 106/56 Blood Pressure [Left] O2 Sat by Pulse 93 100 Oximetry 05/03/21 05/03/21 05/03/21 22:42 22:47 22:52 Temperature Pulse Rate 83 94 H 79 Respiratory Rate Blood Pressure Blood Pressure [Left] O2 Sat by Pulse 100 100 100 Oximetry 05/03/21 22:57 Temperature Pulse Rate 86 Respiratory Rate Blood Pressure Blood Pressure [Left] O2 Sat by Pulse 100 Oximetry - Exam Breasts: deferred Cardiovascular: Regular rate Lungs: Normal air movement Abdomen: Present: normal appearance, soft Vulva: both: normal Uterus: Present: normal FHR: auscultation normal, category 1 Uterine Contraction Monitor Mode: External Cervical Dilatation: 4 Cervical Effacement Percentage: 70 station: -2 Uterine Contraction Frequency (min): 1-3 Uterine Contraction Pattern: Regular Uterine Tone Measurement Phase: Contraction Uterine Contraction Intensity: Moderate Extremities: normal - Labs Labs: Abnormal Labs 05/03/21 14:10 RBC 3.42 L MCHC 35 H Laboratory Results - last 24 hr 05/03/21 05/03/21 05/03/21 14:10 14:10 14:10 WBC 8.6 RBC 3.42 L Hgb 11.1 Hct 31.8 MCV 93 MCH 32 MCHC 35 H RDW 13.2 Plt Count 224 Syphilis IgG Antibody Nonreactive HIV 1&2 Antibody Rapid HIV P24 Antigen Blood Type O NEGATIVE Antibody Screen Positive Antibody Identification Anti-D (Passively Aquired) 05/03/21 14:10 WBC RBC Hgb Hct MCV MCH MCHC RDW Plt Count Syphilis IgG Antibody HIV 1&2 Antibody Rapid Non react HIV P24 Antigen Non react Blood Type Antibody Screen Antibody Identification
--- NOTE | 2021-05-04 01:17 | Anesthesia Consultation ---
Anesthesia Consult and Med Hx Date of service: 05/04/21 - Airway Anesthetic Teeth Evaluation: Good ROM Head & Neck: Adequate Mental/Hyoid Distance: Adequate Mallampati Class: Class II Intubation Access Assessment: Probably Good - Pulmonary Exam CTA: Yes - Cardiac Exam Cardiac Exam: RRR - Pre-Operative Health Status ASA Pre-Surgery Classification: ASA2 Proposed Anesthetic Plan: Epidural - Pulmonary Hx Asthma: No COPD: No Hx Pneumonia: No - Cardiovascular System Hx Hypertension: No - Central Nervous System Hx Seizures: No Hx Psychiatric Problems: No - Endocrine Hx Renal Disease: No Hx End Stage Renal Disease: No Hx Hypothyroidism: No Hx Hyperthyroidism: No - Hematic Hx Anemia: No Hx Sickle Cell Disease: No - Other Systems Hx Alcohol Use: No - Additional Comments Anesthesia Medical History Comments: scoliosis
[2021-05-04] MEDS ORDERED: NALOXONE 2 MG/2 ML INJ IV PRN (01:18)
[2021-05-04] MEDS ORDERED: ePHEDrine SULFATE 50 MG/1 ML INJ IV PRN (01:18)
--- NOTE | 2021-05-04 01:18 | Progress Note ---
Labor Epidural - Labor Epidural Start Time: 01:03 Stop Time: :09 Performed by:: DAVID LOUIS Procedure: Patient is requesting epidural for labor pain. H&P, and labs reviewed. Procedure explained, questions answered, consent obtained. Patient in sitting position with blood pressure cuff and pulse ox on and working. Timeout performed immediately before start of procedure. Sterile chlorahexadine 0.5% prep/drape. 3 mL 1% lidocaine skin wheal at L[3]-L[4]. 18-gauge [employer] epidural needle advanced to [id number] with saline at [7] cm. 27-gauge spinal needle advanced until clear, free-flowing CSF. Intrathecal dexmedetomidine [5] mcg administered and needle removed. Epidural catheter advanced to [12] cm, negative aspiration for blood and csf, negative test dose 3 ml 1.5% lidocaine with epinephrine. Sterile steri-strips and tegaderm applied, followed by tape reinforcement. Patient tolerated procedure well.
[2021-05-04] MEDS: AMPICILLIN/NS 1 GM/50 ML 1 GM/50 ML BAG IV SCH ×2 (01:58→05:15)
[2021-05-04] MEDS ORDERED: fentaNYL-BUPIV 2 MCG/ML-0.125% 200 MCG/100 ML BAG EPIDURAL SCH (02:00)
--- NOTE | 2021-05-04 06:05 | Procedure Note ---
OB Delivery Note - Delivery Date of Delivery: 05/04/21 Medical Staff Credentialing Coordinator: JANEL VEGA Estimated blood loss: <100cc - Vaginal Delivery presentation: vertex Delivery position: OA Intrapartum events: none Delivery induction: other (oxytocin and then cervidil) Delivery monitor: external FHT, external uterine Route of delivery: Delivery placenta: spontaneous Delivery cord: 3 umbilical vessels Episiotomy: none Delivery laceration: none Anesthesia: epidural - A at 1 minute: 8 at 5 minutes: 9 Infant Gender: Female (5lbs 15oz, 2700g)
[2021-05-04] MEDS ORDERED: IBUPROFEN 800 MG TAB PO PRN (06:09)
[2021-05-04] MEDS ORDERED: BENZOCAINE/MENTHOL 20/0.5% TOP SPRAY 56 GM TP PRN (10:00)
[2021-05-04] MEDS ORDERED: LANOLIN/ZINC/DIMETHICONE (LANSINOH) 7 GM TP PRN (10:00)
[2021-05-04] MEDS ORDERED: ONDANSETRON 4 MG/2 ML INJ IV PRN (10:00)
[2021-05-04] MEDS ORDERED: diphenhydrAMINE 25 MG CAP PO PRN (10:00)
[2021-05-04] MEDS ORDERED: MAGNESIUM HYDROXIDE (MOM) ORAL LIQD UDC PO PRN (10:00)
[2021-05-04] MEDS ORDERED: PROMETHAZINE 25 MG TAB PO PRN (10:00)
[2021-05-04] MEDS ORDERED: WITCH HAZEL/ GLYCERIN PAD TP PRN (10:00)
[2021-05-04] MEDS: FERROUS SULFATE 325 MG TAB PO SCH (12:09)
[2021-05-04] MEDS: PRENATAL VIT27-FE FUMARATE-FOLIC ACID VIT TAB PO SCH (12:09)
[2021-05-04] MEDS: DOCUSATE SODIUM 100 MG CAP PO SCH ×2 (12:09→22:44)
[2021-05-04] MEDS: IBUPROFEN 600 MG TAB PO SCH ×3 (12:09→22:44)
--- NOTE | 2021-05-04 17:52 | Progress Note ---
Assessment and Plan A: 21 y.o. s/p at term. P: Continue with care. Anticipate discharge home in the AM. Subjective - Subjective Date of service: 05/04/21 Principal diagnosis: s/p @ term after IOL for IUGR Patient reports: appetite normal, voiding normally, pain well controlled, flatus, ambulating normally : doing well Objective - Vital Signs Latest vital signs: Vital Signs Temp Pulse Resp BP BP Pulse Ox 05/04/21 13:00 98.4 F 69 16 107/47 100 05/04/21 08:30 98.3 F 56 L 18 102/61 100 05/04/21 08:08 60 99 05/04/21 08:02 58 L 97 05/04/21 07:58 80 98 05/04/21 07:56 62 104/72 05/04/21 07:53 62 99 05/04/21 07:48 61 99 05/04/21 07:43 59 L 99 05/04/21 07:41 60 107/77 05/04/21 07:38 64 99 05/04/21 07:35 98.3 F 66 18 141/64 100 05/04/21 07:32 62 97 05/04/21 07:28 73 L 05/04/21 07:27 60 96 05/04/21 07:26 65 107/70 05/04/21 07:22 70 100 05/04/21 07:17 67 99 05/04/21 07:13 71 97 05/04/21 07:11 84 141/64 05/04/21 07:08 107 H 99 05/04/21 07:03 69 91 05/04/21 06:57 75 130/66 100 05/04/21 06:53 63 99 05/04/21 06:48 71 100 05/04/21 06:43 77 99 05/04/21 06:38 69 87 05/04/21 06:33 55 L 80 L 05/04/21 06:28 66 99 05/04/21 06:26 65 93/60 05/04/21 06:23 64 100 05/04/21 06:18 67 100 05/04/21 06:13 65 100 05/04/21 06:11 61 102/58 05/04/21 06:09 75 93 05/04/21 06:08 80 100 05/04/21 06:03 68 100 05/04/21 05:58 75 100 05/04/21 05:56 75 102/57 05/04/21 05:53 90 100 05/04/21 05:49 72 108/64 05/04/21 05:48 77 100 05/04/21 05:43 75 99 05/04/21 05:38 71 100 05/04/21 05:33 62 100 05/04/21 05:28 65 100 05/04/21 05:23 66 98 05/04/21 05:20 57 L 101/55 05/04/21 05:18 61 97 05/04/21 05:13 56 L 98 05/04/21 05:08 63 98 05/04/21 05:03 58 L 99 05/04/21 04:58 58 L 100 05/04/21 04:53 56 L 100 05/04/21 04:49 59 L 98/51 05/04/21 04:48 60 99 05/04/21 04:43 67 98 05/04/21 04:38 61 98 05/04/21 04:33 60 98 05/04/21 04:28 63 98 05/04/21 04:23 58 L 98 05/04/21 04:18 62 100 05/04/21 04:13 61 100 05/04/21 04:08 60 94/59 100 05/04/21 04:03 62 98 05/04/21 03:58 63 98 05/04/21 03:54 58 L 95/54 05/04/21 03:53 63 96 05/04/21 03:48 61 97 05/04/21 03:43 69 97 05/04/21 03:38 63 98/55 97 05/04/21 03:33 73 98 05/04/21 03:28 63 97 05/04/21 03:25 66 93/55 05/04/21 03:23 65 97 05/04/21 03:18 63 97 05/04/21 03:13 70 97 05/04/21 03:10 64 98/50 05/04/21 03:08 64 97 05/04/21 03:03 68 97 05/04/21 02:58 68 97 05/04/21 02:54 67 97/51 05/04/21 02:52 69 97 05/04/21 02:48 72 97 05/04/21 02:43 66 97 05/04/21 02:40 63 96/52 05/04/21 02:38 68 97 05/04/21 02:33 71 98 05/04/21 02:28 62 98 05/04/21 02:24 76 102/55 05/04/21 02:23 74 98 02 02:18 74 99 02 02:13 72 99 02 02:08 71 103/57 98 05/04/21 02:03 98.0 F 68 98 05/04/21 01:58 70 99 02 01:54 69 113/57 05/04/21 01:53 69 99 05/04/21 01:48 71 99 05/04/21 01:42 68 100 02 01:39 60 119/68 05/04/21 01:38 64 100 02 01:33 67 100 05/04/21 01:28 71 100 02 01:24 71 91/55 02 01:23 71 100 02 01:21 77 96/53 02 01:19 70 101/56 02 01:18 76 100 05/04/21 01:17 72 108/59 02 01:15 70 117/65 02 01:14 72 112/60 05/04/21 01:13 77 99 02 01:11 80 115/64 02 01:09 89 116/58 02 01:08 100 H 100 02 01:03 94 H 99 /02 00:58 81 100 07/02 00:53 84 100 /02 00:48 80 100 07/02 00:43 79 100 07/02 00:39 80 116/64 0702 00:38 79 100 07/0221 00:33 79 100 02 00:28 74 99 07/02/ 00:23 82 99 07/02 00:22 73 93 0702 00:18 88 99 02 00:13 81 100 07/02 00:08 81 100 07/02/21 00:03 80 100 05/03/21 23:58 78 100 05/03/21 23:47 96 H 99 05/03/21 23:44 87 91 05/03/21 23:42 80 100 05/03/21 23:37 84 98 05/03/21 23:32 84 100 05/03/21 23:27 88 100 05/03/21 23:22 79 98 05/03/21 23:17 81 100 05/03/21 23:12 82 99 05/03/21 23:07 96 H 99 05/03/21 23:02 88 100 05/03/21 22:57 86 100 05/03/21 22:52 79 100 05/03/21 22:47 94 H 100 05/03/21 22:42 83 100 05/03/21 22:40 79 106/56 05/03/21 22:37 74 100 05/03/21 22:29 95 H 93 05/03/21 22:28 83 100 05/03/21 22:23 73 100 05/03/21 22:20 42 L 76 L 05/03/21 22:18 80 100 05/03/21 22:13 72 100 05/03/21 22:10 76 111/59 05/03/21 22:08 73 100 05/03/21 22:03 65 100 05/03/21 21:58 75 99 05/03/21 21:53 73 99 05/03/21 21:48 71 100 05/03/21 21:43 63 100 05/03/21 21:41 69 117/60 05/03/21 21:38 69 100 05/03/21 21:33 73 99 05/03/21 21:28 71 99 05/03/21 21:23 76 98 05/03/21 21:18 69 98 05/03/21 21:13 74 99 05/03/21 21:09 67 111/65 05/03/21 21:08 69 100 05/03/21 21:03 68 99 05/03/21 20:58 72 99 05/03/21 20:53 67 100 05/03/21 20:48 71 100 05/03/21 20:43 68 100 05/03/21 20:39 75 106/70 05/03/21 20:38 73 100 05/03/21 20:33 71 100 05/03/21 20:28 68 100 05/03/21 20:23 75 96 05/03/21 20:21 71 94 05/03/21 20:18 70 96 05/03/21 20:15 94 05/03/21 20:13 72 103/54 100 05/03/21 20:08 72 100 05/03/21 20:03 71 100 05/03/21 19:58 90 100 05/03/21 19:38 70 99 05/03/21 19:33 82 91 05/03/21 19:28 73 98 05/03/21 19:23 74 98 05/03/21 19:18 71 98 05/03/21 19:13 72 100 05/03/21 19:09 98.3 F 82 18 108/67 111/54 05/03/21 19:08 77 99 05/03/21 19:03 75 99 05/03/21 19:02 74 93 05/03/21 19:01 82 111/54 05/03/21 18:58 75 99 05/03/21 18:53 78 98 05/03/21 18:48 84 98 05/03/21 18:43 74 97 05/03/21 18:39 72 92/46 05/03/21 18:38 77 98 05/03/21 18:33 78 96 05/03/21 18:28 86 98 05/03/21 18:26 69 112/67 05/03/21 18:23 74 97 05/03/21 18:18 77 98 05/03/21 18:13 68 98 05/03/21 18:08 86 98 05/03/21 18:03 79 98 05/03/21 17:58 80 99 05/03/21 17:53 97 H 98 Intake and Output 05/04/21 05/04/21 05/04/21 06:59 14:59 22:59 Intake Total 50 Output Total 750 Balance -700 Intake: IV 50 AMPICILLIN/NS 1 GM/50 ML 50 1 gm In 50 ml @ 100 mls/ hr IV Q4H [facility] Rx#: [id number] Output: Urine 750 Indwelling 150 Indwelling Catheter 600 Other: Total, Output Amount 600 Estimated Blood Loss 50 - Exam Narrative Exam: Pt with some cramping discussed normal discomforts in the period. Also discussed that some cramping after breast feeding is normal. Breasts: Present: deferred Cardiovascular: Present: Regular rate Lungs: Present: Normal air movement Abdomen: Present: normal appearance, soft Uterus: Present: normal, firm Extremities: Present: normal
[2021-05-04 19:30] LABS: Hematocrit 31.4 % (30.3-42.9); Hemoglobin 10.9 gm/dl (10.1-14.3)
--- NOTE | 2021-05-05 05:19 | Discharge Summary ---
Providers - Providers Date of Admission: 05/03/21 12:45 Date of discharge: 05/05/21 (pt desires d/c) Attending physician: CHRIS CLINTON Primary care physician: Chris Clinton Hospitalization Reason for admission: induction of labor Delivery: Episiotomy: none Laceration: none Other procedures: none complications: none Discharge diagnosis: IUP at term delivered baby: female Hospital course: Uncomplicated vaginal delivery Pt sleeping easily aroused Desires d/c later today VSS FF below umb Lochia small perineum intact H&H 09/02 stable. Doing well s/p P: d/c today with instructions RTO 4 weeks Pt desires Mirena for BC. Condition at discharge: Good Disposition: DC-01 TO HOME OR SELFCARE - Discharge Diagnoses (1) Spontaneous vaginal delivery Status: Acute Comment: RTO 4 weeks PP Care Plan - Provider Discharge Summary Activity: routine, no sex for 6 weeks, no heavy lifting 4 weeks, no strenuous exercise Diet: routine Instructions: routine Additional instructions: [] Smoking cessation referral if applicable(refer to patient education folder for contact #) [] Refer to [facility] Booklet Call your doctor immediately for: * Fever > 100.5 * Heavy vaginal bleeding ( >1 pad per hour) * Severe persistent headache * Shortness of breath * Reddened, hot, painful area to leg or breast * Drainage or odor from incision. * Keep incision clean and dry at all times and follow doctor's instructions regarding bathing/showering - Follow up plan Follow up: SHABBIR HEALY MD [Primary Care Provider] - 7 Days NASEEM GUSMAN CNM [Advanced Practice Nurse] - 06/04/21 (Congratulations! please call [phone] to schedule your visit in 4 weeks. Motrin/ibuprofen for cramping/pain. Call with any concerns.)
[2021-05-05] MEDS ORDERED: TETANUS,DIPH,PERTUSS(ACELL) VACCINE 0.5 ML SYRINGE IM ONE (08:00)
[2021-05-05 09:04] VITALS: BP 100/63
[2021-05-05] MEDS ORDERED: MEASLES, MUMPS & RUBELLA 12,500 UNIT/0.5 ML VACCINE SUB-Q ONE (10:00)
[2021-05-05] MEDS: IBUPROFEN 600 MG TAB PO SCH (10:43)
[2021-05-05] MEDS: FERROUS SULFATE 325 MG TAB PO SCH (10:45)
[2021-05-05] MEDS: PRENATAL VIT27-FE FUMARATE-FOLIC ACID VIT TAB PO SCH (10:45)
[2021-05-05] MEDS: DOCUSATE SODIUM 100 MG CAP PO SCH (10:46)
--- NOTE | 2021-05-05 16:04 | Post Anesthesia Evaluation ---
- Post Anesthesia Evaluation Patient Participated: Yes Airway Patent: Yes Stable Respiratory Function: Yes Nausea/Vomiting: No Temp > 96.8F: Yes Pain Manageable: Yes Adequeate Hydration: Yes Anesthesia Complications: No Block Receding Appropriately: Yes
== END 2021-05-05 16:00 | disposition home or self-care (01) | DRG 775 ==
LOC: LD 12:45 → OB 05-04 08:53
PROVIDERS: ADMIT Obstetrics & Gynecology; ATTEND Obstetrics & Gynecology
PROC: 10E0XZZ Delivery of Products of Conception, External Approach (ICD-10-PCS; principal; 2021-05-04)
PROC: 3E0R3BZ Introduction of Anesthetic Agent into Spinal Canal, Percutaneous Approach (ICD-10-PCS; 2021-05-04)
PROC: 00HU33Z Insertion of Infusion Device into Spinal Canal, Percutaneous Approach (ICD-10-PCS; 2021-05-04)
PROC: 3E033VJ Introduction of Other Hormone into Peripheral Vein, Percutaneous Approach (ICD-10-PCS; 2021-05-04)
PROC: 3E0P7VZ Introduction of Hormone into Female Reproductive, Via Natural or Artificial Opening (ICD-10-PCS; 2021-05-04)
PROC: 3E0234Z Introduction of Serum, Toxoid and Vaccine into Muscle, Percutaneous Approach (ICD-10-PCS; 2021-05-05)
DX: O36.5930 Maternal care for other known or suspected poor fetal growth, third trimester, not applicable or unspecified (principal); O99.824 Streptococcus B carrier state complicating childbirth; O36.0930 Maternal care for other rhesus isoimmunization, third trimester, not applicable or unspecified; O26.893 Other specified pregnancy related conditions, third trimester; Z3A.37 37 weeks gestation of pregnancy; Z37.0 Single live birth; Z83.3 Family history of diabetes mellitus; Z67.41 Type O blood, Rh negative; Z20.822 Contact with and (suspected) exposure to COVID-19
CPT/HCPCS: 36415; 59025; 59200; 85014; 85018; 85027; 85460; 85461; 86592; 86850; 86870; 86900; 86901; 87806; 88307; 96360; 99211; G0378; G0463; J0290; J2405; J2590; J2790; J3010; J7120; U0003

== ENCOUNTER 2021-11-04 20:27 | Emergency (ER) | payer MEDICAID ==
--- NOTE | 2021-11-04 23:46 | Emergency Department Report ---
ED General Adult HPI - General Chief complaint: Upper Respiratory Infection Stated complaint: SICK PUI?: No Source: patient Mode of arrival: Ambulatory Limitations: No Limitations - History of Present Illness Initial comments: Patient is a 21-year-old -[place] female with no past medical history who presents to the ED with complaint of acute onset persistent right maxillary gingival swelling and pain with premolar and molar toothache for the last 2 days. Patient also complains of nausea and right ear pain. Patient states that she has not taken any medications for pain. Patient denies headache, vomiting, chest pain or shortness of breath, fever, chills, traumatic injury, cough, nasal and sinus congestion, abdominal pain, or back pain and fall. MD Complaint: right maxillary premolar and molar dental pain; maxillary gingival swelling -: Sudden, days(s) (4) Location: mouth (right maxillary gingival pain and swelling; premolar and molar toothache) Severity scale (0 -10): 5 Quality: aching, sharp, constant Consistency: constant Improves with: none Worsens with: eating Associated Symptoms: denies other symptoms, other (nausea and right ear pain). denies: confusion, chest pain, cough, diaphoresis, fever/chills, headaches, loss of appetite, malaise, nausea/vomiting, rash, seizure, shortness of breath, sync ope, weakness Treatments Prior to Arrival: none - Related Data Previous Rx's Medication Instructions Recorded Last Taken Type Amoxicillin 500 mg PO BID #14 capsule 10/25/18 Unknown Rx Ferrous Sulfate 325 mg PO BID #30 tablet. 12/05/18 Unknown Rx Ibuprofen [Motrin] 600 mg PO Q8H PRN #30 tablet 12/05/18 Unknown Rx oxyCODONE /ACETAMINOPHEN [Percocet 1 tab PO Q6HR PRN #30 tablet 12/05/18 Unknown Rx 5/325] Acetaminophen/Codeine [Tylenol 1 tab PO Q6H PRN #20 tab 02/06/21 Unknown Rx /Codeine # 3 tab] Nitrofurantoin [place]/M-Cryst 100 mg PO Q12HR #28 capsule 02/06/21 Unknown Rx [Macrobid CAP] Amoxicillin/Potassium Clav 1 each PO Q12H #20 tablet 11/04/21 Unknown Rx [Augmentin 875-125 Tablet] Ibuprofen [Motrin] 600 mg PO Q8H PRN #30 tablet 11/04/21 Unknown Rx Ondansetron [Zofran Odt] 4 mg PO Q6HR PRN #15 tab.rapdis 11/04/21 Unknown Rx traMADoL [Ultram] 50 mg PO Q6HR PRN #12 tablet 11/04/21 Unknown Rx Allergies Allergy/AdvReac Type Severity Reaction Status Date / Time No Known Allergies Allergy Verified 05/03/21 13:47 ED Review of Systems ROS: Stated complaint: SICK Other details as noted in HPI Constitutional: denies: chills, fever Eyes: denies: eye pain, eye discharge, vision change ENT: dental pain (right maxillary premolar and molar toothache with swollen ggums and pain). denies: ear pain, throat pain Respiratory: denies: cough, shortness of breath, wheezing Cardiovascular: denies: chest pain, palpitations Endocrine: no symptoms reported Gastrointestinal: nausea. denies: abdominal pain, vomiting, diarrhea, constipation, hematemesis, hematochezia Genitourinary: denies: urgency, dysuria, discharge Musculoskeletal: denies: back pain, joint swelling, arthralgia Skin: denies: rash, lesions Neurological: denies: headache, weakness, paresthesias Psychiatric: denies: anxiety, depression Hematological/Lymphatic: denies: easy bleeding, easy bruising ED Past Medical Hx - Past Medical History Hx Hypertension: No Hx Congestive Heart Failure: No Hx Diabetes: No Hx Deep Vein Thrombosis: No Hx Renal Disease: No Hx Sickle Cell Disease: No Hx Seizures: No Hx Asthma: No Hx COPD: No Hx HIV: No - Social History Smoking Status: Never Smoker - Medications Home Medications: Home Medications Medication Instructions Recorded Confirmed Last Taken Type Amoxicillin 500 mg PO BID #14 capsule 10/25/18 02/04/21 Unknown Rx Ferrous Sulfate 325 mg PO BID #30 tablet. 12/05/18 02/04/21 Unknown Rx Ibuprofen [Motrin] 600 mg PO Q8H PRN #30 tablet 12/05/18 02/04/21 Unknown Rx oxyCODONE /ACETAMINOPHEN [Percocet 1 tab PO Q6HR PRN #30 tablet 12/05/18 02/04/21 Unknown Rx 5/325] Acetaminophen/Codeine [Tylenol 1 tab PO Q6H PRN #20 tab 02/06/21 Unknown Rx /Codeine # 3 tab] Nitrofurantoin [place]/M-Cryst 100 mg PO Q12HR #28 capsule 02/06/21 Unknown Rx [Macrobid CAP] Amoxicillin/Potassium Clav 1 each PO Q12H #20 tablet 11/04/21 Unknown Rx [Augmentin 875-125 Tablet] Ibuprofen [Motrin] 600 mg PO Q8H PRN #30 tablet 11/04/21 Unknown Rx Ondansetron [Zofran Odt] 4 mg PO Q6HR PRN #15 tab.rapdis 11/04/21 Unknown Rx traMADoL [Ultram] 50 mg PO Q6HR PRN #12 tablet 11/04/21 Unknown Rx ED Physical Exam - General Limitations: No Limitations General appearance: alert, in no apparent distress - Head Head exam: Present: atraumatic, normocephalic, normal inspection - Eye Eye exam: Present: normal appearance, PERRL, EOMI Pupils: Present: normal accommodation - ENT ENT exam: Present: mucous membranes moist, TM's normal bilaterally, normal external ear exam, other (Swollen, tender right maxillary gingiva; severely tender right maxillary premolar and molar teeth) - Neck Neck exam: Present: normal inspection, full ROM - Respiratory Respiratory exam: Present: normal lung sounds bilaterally. Absent: respiratory distress, wheezes, rales, rhonchi, stridor, chest wall tenderness, accessory muscle use, decreased breath sounds, prolonged expiratory - Cardiovascular Cardiovascular Exam: Present: regular rate, normal rhythm, normal heart sounds. Absent: systolic murmur, diastolic murmur, rubs, gallop - GI/Abdominal GI/Abdominal exam: Present: soft, normal bowel sounds. Absent: tenderness, guarding, rebound, hyperactive bowel sounds, hypoactive bowel sounds, organomegaly, mass - Extremities Exam Extremities exam: Present: normal inspection, full ROM, normal capillary refill - Back Exam Back exam: Present: normal inspection, full ROM. Absent: tenderness, CVA tenderness (R), CVA tenderness (L), muscle spasm, paraspinal tenderness, vertebral tenderness - Neurological Exam Neurological exam: Present: alert, oriented X3, CN II-XII intact, normal gait, reflexes normal - Psychiatric Psychiatric exam: Present: normal affect, normal mood - Skin Skin exam: Present: warm, dry, intact, normal color. Absent: rash ED Course Vital Signs 11/04/21 21:58 Temperature 99.6 F Pulse Rate 97 H Respiratory 18 Rate Blood Pressure 126/70 [Right] O2 Sat by Pulse 98 Oximetry ED Medical Decision Making - Medical Decision Making This is a 21-year-old -[place] female with no past medical history who presents to the ED with complaint of acute onset persistent right maxillary gingival swelling and pain with premolar and molar toothache for the last 2 days. Patient also complains of nausea and right ear pain. Patient states that she has not taken any medications for pain. In the ED, patient is alert and oriented x3 and is not in any distress, is hemodynamically stable. Based on the history and physical exam findings, the patient will discharge home on medications and advised to follow-up with her dentist or primary care physician in 7 to 10 days for reevaluation. Patient was advised to return to the ED immediately if symptoms get worse. - Differential Diagnosis dental abscess; gingivitis; dental caries Critical care attestation.: If time is entered above; I have spent that time in minutes in the direct care of this critically ill patient, excluding procedure time. ED Disposition Clinical Impression: Dental abscess, Acute gingivitis Disposition: 01 HOME / SELF CARE / HOMELESS Is pt being admited?: No Does the pt Need Aspirin: No Condition: Stable Instructions: Dental Abscess, [id number] Additional Instructions: Take medication with food, drink plenty of fluids and follow-up with your primary care physician or dentist in 7 to 10 days for reevaluation. Return to the ED immediately if symptoms get worse. Prescriptions: Amoxicillin/Potassium Clav [Augmentin 875-125 Tablet] 1 each PO Q12H #20 tablet Ibuprofen [Motrin] 600 mg PO Q8H PRN #30 tablet PRN Reason: Pain traMADoL [Ultram] 50 mg PO Q6HR PRN #12 tablet PRN Reason: Pain Ondansetron [Zofran Odt] 4 mg PO Q6HR PRN #15 tab.rapdis PRN Reason: Nausea And Vomiting Referrals: [facility] [Outside] - 7-10 days Time of Disposition: 23:46 Print Language: CROATIAN
[2021-11-05] MEDS ORDERED: IBUPROFEN 600 MG TAB PO ONE (00:20)
[2021-11-05] MEDS ORDERED: AMOXICILLIN/K CLAV 875/125MG TAB PO ONE (00:20)
[2021-11-05 00:47] VITALS: BP 122/74
== END 2021-11-05 00:46 | disposition home or self-care (01) ==
LOC: ED 20:27
DX: K04.7 Periapical abscess without sinus (principal); K05.00 Acute gingivitis, plaque induced
CPT/HCPCS: 99282